=== PATIENT | female | born 1940 | race Caucasian/White ===

== ENCOUNTER → 2020-03-07 | Outpatient (CLI) | payer OTHER ==
--- NOTE | 2020-03-09 17:26 | NM ---
EXAM DESCRIPTION: Thyroid Uptake Scan CLINICAL HISTORY: e04.1 COMPARISON: [None.] TECHNIQUE: Patient was given 275 uCi of iodine 123 radiopharmaceutical orally. Percentage of activity in the thyroid gland was measured at 5 hr. Anterior and oblique gamma camera images were obtained of the thyroid gland 24 hrs. Activity again also measured at 24 hr. FINDINGS: 5 hour I-123 uptake was 2.4%. 24-hour I-123 uptake was 4.9%. These values are abnormally low. Images show increased uptake in the upper pole of the left lobe on the anterior images and the [place] image. Possible focal decreased activity both lower poles. Activity appears more symmetric bilateral lobes on the [place] image. IMPRESSION: 1. Abnormally low five-hour and 24-hour uptake of I-123 in the thyroid gland. This could be due to hypothyroidism or autoimmune disease. 2. Question of increased activity in the upper pole of the left lobe and decreased activity in the bilateral lower poles. Consider correlation with ultrasound. Electronically signed by: Tomas Mckeon MD 03/09/2020 5:24 PM CDT
== END ==
LOC: NM 08:05
PROVIDERS: ATTEND Family Medicine
DX: E04.1 Nontoxic single thyroid nodule (principal); E07.9 Disorder of thyroid, unspecified
CPT/HCPCS: 78012; A9516